=== PATIENT | female | born 1945 | race Caucasian/White ===

== ENCOUNTER 2024-10-15 07:57 | Day surgery (SDC) | payer MEDICARE, OTHER, SELFPAY ==
[2024-06-15 06:52] VITALS: BMI 29.0
--- NOTE | 2024-06-15 12:43 | HO.ANESPROP2 ---
HPI - Anesthesia Eval Consult details Narrative: 79yo F for Colonoscopy [facility] Past Medical History Medical History (Updated 06/15/24 @ 06:50 by Ysabel Singh, RN) Elevated cholesterol HTN (hypertension) Glaucoma Surgical History Surgical History (Updated 06/15/24 @ 06:50 by Ysabel Singh, RN) History of total right knee replacement Hx of tonsillectomy H/O colonoscopy Meds Allergies Allergy/AdvReac Type Severity Reaction Status Date / Time No Known Allergies Allergy Verified 06/15/24 06:48 Home Medications ?Medication ?Instructions ?Recorded ?Confirmed ?Last Taken ?Type amlodipine 5 mg tablet 5 mg PO DAILY 06/15/24 06/15/24 Unknown History atorvastatin 10 mg tablet 10 mg PO DAILY 06/15/24 06/15/24 Unknown History dorzolamide 22.3 mg-timolol 6.8 ophthalmic (eye) 06/15/24 Unknown History mg/mL eye drops multivitamin 1 tab PO DAILY 06/15/24 06/15/24 Unknown History Exam Height,Weight and Vital Signs: Height 5 ft 6 in Weight 81.647 kg Assessment and Plan Assessment Anesthesia Assessment: Chart Reviewed
--- NOTE | 2024-10-12 09:52 | P.CONAN_ITS ---
Documented by User: Livier Baires NP 10/12/24 09:52 HPI - Anesthesia Eval Consult details Narrative: 79yo F for Colonoscopy [facility] Past Medical History Medical History Elevated cholesterol HTN (hypertension) Glaucoma Surgical History Surgical History History of total right knee replacement Hx of tonsillectomy H/O colonoscopy Social History Social History Patient Tobacco Use Status: Never used Tobacco Have you been hit, kicked, punched, or otherwise hurt by someone within the past year? If so, by whom?: No Are you DNR?: No Advance Directives: No Advance Directives Information Provided: Yes Nutrition Risks: No Nutritional Risk Meds Allergies Allergy/AdvReac Type Severity Reaction Status Date / Time No Known Allergies Allergy Verified 06/15/24 06:48 Home Medications ?Medication ?Instructions ?Recorded ?Confirmed ?Last Taken ?Type amlodipine 5 mg tablet 5 mg PO DAILY 06/15/24 06/15/24 10/15/24 History atorvastatin 10 mg tablet 10 mg PO DAILY 06/15/24 06/15/24 Unknown History dorzolamide 22.3 mg-timolol 6.8 ophthalmic (eye) 06/15/24 Unknown History mg/mL eye drops multivitamin 1 tab PO DAILY 06/15/24 06/15/24 Unknown History Exam Height,Weight and Vital Signs: Height 5 ft 6 in Weight 81.647 kg Assessment and Plan Assessment Anesthesia Assessment: Chart Reviewed Documented by User: Juju Singer MD 10/15/24 08:54 [facility] Past Medical History Medical History Elevated cholesterol HTN (hypertension) Glaucoma Surgical History Surgical History History of total right knee replacement Hx of tonsillectomy H/O colonoscopy History of Problems with Anesthesia: No Social History Social History Patient Tobacco Use Status: Never used Tobacco Have you been hit, kicked, punched, or otherwise hurt by someone within the past year? If so, by whom?: No Are you DNR?: No Advance Directives: No Advance Directives Information Provided: Yes Nutrition Risks: No Nutritional Risk Meds Allergies Allergy/AdvReac Type Severity Reaction Status Date / Time No Known Allergies Allergy Verified 06/15/24 06:48 Home Medications ?Medication ?Instructions ?Recorded ?Confirmed ?Last Taken ?Type amlodipine 5 mg tablet 5 mg PO DAILY 06/15/24 06/15/24 10/15/24 History atorvastatin 10 mg tablet 10 mg PO DAILY 06/15/24 06/15/24 Unknown History dorzolamide 22.3 mg-timolol 6.8 ophthalmic (eye) 06/15/24 Unknown History mg/mL eye drops multivitamin 1 tab PO DAILY 06/15/24 06/15/24 Unknown History Exam Airway Mallampati Class: II TM Dist: >3cm Neck ROM: Full Loose/Missing/Broken Teeth: No Heart: RRR Lungs: CTA Assessment and Plan Assessment Anesthesia Assessment: Anesthesia Plan Discussed Final Anesthetic Review History of Problems with Anesthesia: No NPO: Yes ASA Class: II Final Preanesthetic Review: Meds/Allgs Chart Reviewed, Consent Obtained/Reviewed and Anes Risks/Benef Reviewed Patient Risk: Low Procedure Risk: Low Anesthetic Plan Anesthetic Plan: MAC: Disposition: Standard PACU
[2024-10-15 08:16] VITALS: BP 136/79; PULSE 80; RESP 18; TEMP 36.3; O2SAT 98
[2024-10-15] MEDS: Lactated Ringers 1,000 ML 100 ML IVCONT (08:34)
[2024-10-15 10:43] VITALS: BP 112/66; PULSE 67; RESP 18; TEMP 36.1; O2SAT 99
--- NOTE | 2024-10-15 10:46 | PM.OP ---
Brief Operative Note Date of Service: 10/15/24 Pre-op diagnosis: Screening Post-op diagnosis: other (Colon polyp) Procedure: Colonoscopy to the cecum with hot snare polypectomy and placement of 2 Resolution clips Surgeon: Luis Ortiz MD Anesthesia: MAC Was an Hand Alterations Tailor used for this Procedure?: No Estimated blood loss (mL): 2.0 Pathology: other (A. Polyp at 25cm) Condition: stable Disposition: PACU
[2024-10-15 10:55] VITALS: BP 110/67; PULSE 62; RESP 16; O2SAT 99
--- NOTE | 2024-10-15 11:11 | OP_ITS ---
DATE OF SERVICE: 10/15/2024 SURGEON: Luis Ortiz MD INDICATIONS: The patient presents for evaluation of colorectal cancer screening and personal history of colon polyps. Full consent has been obtained from her for this, including risks of bleeding and perforation. PREOPERATIVE DIAGNOSIS: POSTOPERATIVE DIAGNOSIS: PROCEDURE PERFORMED: Colonoscopy to the cecum with hot snare polypectomy and placement of 2 Resolution clips. ESTIMATED BLOOD LOSS: COMPLICATIONS: ANESTHESIA: Monitored anesthesia care. ASSISTANTS: SPECIMENS: PREOPERATIVE DIAGNOSES: Colorectal cancer screening and personal history of colon polyps. POSTOPERATIVE DIAGNOSES: Colorectal cancer screening, personal history of colon polyps, colon polyp, diverticulosis, and internal hemorrhoids. DESCRIPTION OF PROCEDURE: The patient was placed in the left lateral decubitus position. The digital rectal exam revealed external hemorrhoids. The Olympus video pediatric colonoscope was then entered into the rectum and advanced easily to the cecum. Once in the cecum, I did identify normal-appearing cecal pouch with appendiceal orifice and a normal-appearing ileocecal valve. The entire cecum and ileocecal valve appeared normal. There was transillumination of light deep in the right lower quadrant. The scope was slowly withdrawn assessing all mucosal surfaces carefully. Preparation was excellent. At 25 cm, was an approximately 1.2 cm polyp on a relatively long stalk. The stalk was snared at the base with the hot snare polypectomy and removed completely. The polypectomy site appeared clean, without any sign of residual polyp nor bleeding. The polyp was removed by retrieving it on the tip of the scope and withdrawing it from the patient. The colonoscope was re-entered into the rectum and advanced back to the polypectomy site. This area appeared clean, without any sign of residual polyp nor bleeding. I did place 2 Resolution clips onto the polypectomy site with good deployment and good hemostasis. I did not visualize any other polyps, colitis, nor angiodysplasias. There was a moderate amount of sigmoid diverticulosis. In the rectum, scope was retroflexed, visualizing internal hemorrhoids, but no other pathology. The rectal mucosa appeared normal. The scope was straightened and withdrawn from the patient. She tolerated the procedure well and was returned to the recovery area in stable condition. IMPRESSION: 1. Colon polyp. 2. Diverticulosis. 3. Internal and external hemorrhoids. PLAN: The results of the pathology will be checked. Given her age and today's findings, I do not think she would need any further screening colonoscopies. She was advised not to use any aspirin and NSAIDs for 2 weeks. She will, otherwise, see me on a p.r.n. basis. This has been discussed with her . MD RONIT Heaton/NONA / [id number]
[2024-10-15 11:12] VITALS: BP 125/65; PULSE 64; RESP 16; TEMP 36.3; O2SAT 98
== END 2024-10-15 11:51 | disposition home or self-care (01) ==
PROVIDERS: PCP Family Medicine; Visit Provider Internal Medicine
PROC: 0DJD8ZZ Inspection of Lower Intestinal Tract, Via Natural or Artificial Opening Endoscopic (ICD-10-PCS; CPT 45378; principal; 2024-10-15 09:30)
DX: Z12.11 Encounter for screening for malignant neoplasm of colon (principal); Z86.0101 Personal history of adenomatous and serrated colon polyps; D12.5 Benign neoplasm of sigmoid colon; K57.30 Diverticulosis of large intestine without perforation or abscess without bleeding; K64.8 Other hemorrhoids; K64.4 Residual hemorrhoidal skin tags; I10 Essential (primary) hypertension; E78.00 Pure hypercholesterolemia, unspecified; H40.9 Unspecified glaucoma; Z79.899 Other long term (current) drug therapy
CPT/HCPCS: 45385; 88305; J2003; J2405; J2704